=== PATIENT | female | born 1965 ===

== ENCOUNTER → 2024-09-15 11:41 | Outpatient (REF) | payer OTHER, SELFPAY ==
[2024-09-15 13:13] LABS: Hepatitis B Surface Antibody Positive
[2024-09-17 17:33] LABS: Quantiferon Mitogen minus NIL 9.44 IU/mL; Quantiferon NIL 0.03 IU/mL; Quantiferon Plus TB1 minus NIL 0.02 IU/mL (<=0.34); Quantiferon Plus TB2 minus NIL 0.02 IU/mL (<=0.34); Quantiferon TB Gold Plus Negative (Negative)
[2024-09-18 16:33] LABS: Varicella Zoster IgG (VZV) Negative
== END ==
LOC: OHS 11:41
PROVIDERS: ATTENDING PHYSICIAN Nurse Practitioner Family
DX: Z23 Encounter for immunization (principal)
CPT/HCPCS: 36415; 86480; 86706; 86787